=== PATIENT | female | born 1960 | race Caucasian/White ===

== ENCOUNTER → 2017-01-07 | Outpatient (CLI) | payer BC ==
--- NOTE | 2017-01-10 08:53 | MM ---
Reason for exam: screening (asymptomatic). Last mammogram was performed 2 years and 1 month ago. History: Patient is postmenopausal. Taking estrogen for 2 years. Physical Findings: A clinical breast exam by your physician is recommended on an annual basis and results should be correlated with mammographic findings. MG 3D Screening Mammo W/Cad Bilateral CC and MLO view(s) were taken. Prior study comparison: December 18, 2014, bilateral MG screening mammo w CAD. February 12, 2013, bilateral digital screening mammo w/CAD. Finding: Architectural distortion in the upper outer quadrant of the left breast. There is a chronic nodularity in the left breast increased in size since 2011. There is no dominant lesion. New finding since December 18, 2014 and February 12, 2013. ASSESSMENT: Incomplete: need additional imaging evaluation, BI-RAD 0 RECOMMENDATION: Ultrasound of the left breast. [facility] will attempt to contact patient to return for ultrasound.
== END | disposition home or self-care (01) ==
LOC: RADMAMWWP 06:51
PROVIDERS: ATTEND Obstetrics & Gynecology
DX: Z12.31 Encounter for screening mammogram for malignant neoplasm of breast (principal); R92.2 Inconclusive mammogram
CPT/HCPCS: 77063; G0202

== ENCOUNTER → 2017-01-13 | Outpatient (CLI) | payer SELFPAY ==
--- NOTE | 2017-01-14 11:53 | USB ---
Reason for exam: additional evaluation requested from abnormal screening. History: Patient is postmenopausal. Taking estrogen for 2 years. Physical Findings: Nurse Summary: left breast 3 o'clock area of more thick tissue, all soft, movable, nodular (nurse ts). US Breast Workup LT Left breast ultrasound demonstrates a 0.4 x 0.3 x 0.6cm lesion too small to characterize at 12 o'clock, a 0.6 x 0.3 x 0.3cm lesion too small to characterize at 12 o'clock, a 0.8 x 0.6 x 0.7cm mixed lesion at 11:30, a 0.4 x 0.3 x 0.7cm lesion too small to characterize at 1 o'clock, a 0.4 x 0.3 x 0.4cm lesion too small to characterize at 2 o'clock, a 0.3 x 0.2 x 0.3cm lesion too small to characterize at the axilla tail, a 0.31 x 0.4 x 0.3cm lesion too small to characterize at 2:30 and questionable shadowing at 3 o'clock. These results were verbally communicated with the patient and result sheet given to the patient on 01/13/17. ASSESSMENT: Suspicious, BI-RAD 4 RECOMMENDATION: Surgical consultation of the left breast. Called Dr. Ray with mammographic findings and has scheduled an appointment for the patient for 01/25/17 at 1:[address] Art. PRELIMINARY REPORT CALLED AND FAXED TO DR. ART ON 01/14/17 AT 300/TMP.
== END | disposition home or self-care (01) ==
LOC: RADUSWWP 15:41
PROVIDERS: ATTEND Obstetrics & Gynecology
DX: R92.8 Other abnormal and inconclusive findings on diagnostic imaging of breast (principal)